=== PATIENT | female | born 1965 | race African-American/Black ===

== ENCOUNTER 2021-10-10 08:57 | Emergency (ER) | payer OTHER ==
[~2021-10-10] VITALS: Ht 157.5 cm; Wt 91.0 kg
[2021-10-10] MEDS ORDERED: HYDR12.54 PO (09:19)
[2021-10-10] MEDS ORDERED: THROAT LOZENGES-BENZOCAINE/MENTH/CETYLPYRD CL LOZENGES MM PRN (09:45)
[2021-10-10] MEDS ORDERED: GUAIFENESIN 200MG/10ML SUGAR FREE UDC PO ONE (09:45)
[2021-10-10] MEDS ORDERED: IBUPROFEN 400MG TABLET PO ONE (09:45)
[2021-10-10] MEDS ORDERED: GUAI237L83 MT (10:42)
[2021-10-10] MEDS ORDERED: IBUP-2028 MT (10:42)
[2021-10-10 11:05] VITALS: BP 138/72
== END 2021-10-10 11:07 | disposition home or self-care (01) ==
LOC: ER 08:57
DX: J06.9 Acute upper respiratory infection, unspecified (principal); M19.90 Unspecified osteoarthritis, unspecified site; I10 Essential (primary) hypertension; Z90.49 Acquired absence of other specified parts of digestive tract; Z98.51 Tubal ligation status; Z98.890 Other specified postprocedural states
CPT/HCPCS: 71045; 73610; 99284

== ENCOUNTER 2022-07-09 09:54 | Emergency (ER) | payer OTHER ==
[~2022-07-09] VITALS: Ht 157.5 cm; Wt 96.0 kg
[~2022-07-09 09:54] MED LIST: GUAI237L83 MT; HYDR12.54 PO; IBUP-2028 MT
[2022-07-09 10:06] VITALS: BP 159/64
[2022-07-09] MEDS ORDERED: ACETAMINOPHEN 325MG TABLET PO ONE (11:30)
[2022-07-09] MEDS ORDERED: ACET-2708 MT (13:03)
== END 2022-07-09 13:19 | disposition home or self-care (01) ==
LOC: ER 09:54
DX: S93.491A Sprain of other ligament of right ankle, initial encounter (principal); S90.01XA Contusion of right ankle, initial encounter; I10 Essential (primary) hypertension; W01.0XXA Fall on same level from slipping, tripping and stumbling without subsequent striking against object, initial encounter; Y93.9 Activity, unspecified; Y92.9 Unspecified place or not applicable; Z90.49 Acquired absence of other specified parts of digestive tract; Z98.51 Tubal ligation status; Z98.890 Other specified postprocedural states
CPT/HCPCS: 73610; 73630; 99284

== ENCOUNTER 2022-12-23 14:10 | Inpatient (IN) | payer OTHER ==
[~2022-12-23] VITALS: Ht 160 cm; Wt 107.5 kg
[~2022-12-23 14:10] MED LIST changes: +ACET-2708 MT
[2022-12-23] MEDS ORDERED: PRILOSEC (14:18)
[2022-12-23] MEDS ORDERED: ALBUTEROL (14:18)
[2022-12-23] MEDS ORDERED: LISINOPRIL (14:18)
[2022-12-23] MEDS ORDERED: BANOPHEN (14:18)
[2022-12-23] MEDS ORDERED: AMLODIPINE (14:18)
[2022-12-23] MEDS ORDERED: VITAMIN D (14:18)
[2022-12-23 15:21] LABS: BASOPHILS % 0.4 % (0.0-2.0); EOSINOPHILS % 1.8 % (0.0-5.0); HEMATOCRIT. 40.1 % (36.0-48.0); HEMOGLOBIN. 13.6 g/dL (12.0-16.0); LYMPHOCYTES % 31.7 % (20.0-50.0); MEAN CORPUSCULAR HEMOGLOBIN 32.8 pg (28.0-32.0); MEAN CORPUSCULAR VOLUME 96.4 fL (81.0-99.0); MEAN PLATELET VOLUME 7.7 fl (7.4-10.4); MONOCYTES % 6.4 % (2.0-8.0); NEUTROPHILS % 59.7 % (40.0-76.0); PLATELET 325 x1000/uL (130-400); RED BLOOD CELL COUNT 4.16 mill/uL (4.2-5.4)
[2022-12-23 15:31] LABS: CHLORIDE 90 mEq/L (98-107)
[2022-12-23 16:07] LABS: PARTIAL THROMBOPLASTIN TIME 25.9 sec (23.4-31.0); PROTHROMBIN TIME 11.1 sec (9.6-11.0)
[2022-12-23] MEDS ORDERED: POTASSIUM CHLORIDE 20MEQ TABLET SR PO ONE (17:00)
[2022-12-23] MEDS ORDERED: MAGNESIUM 2 G PREMIX 50 ML IV ONE (17:00)
[2022-12-23] MEDS ORDERED: KCL 20MEQ/100ML PREMIX 100 ML IV ONE (17:00)
[2022-12-23 17:33] LABS: BG BASE EXCESS 24.3 mmol/L (-2.0-2.0); BG DEOXYHEMOGLOBIN 9.5 % (0.0-5.0); BG METHEMOGLOBIN 0.4 % (0.0-1.5); BG OXYGEN SATURATION 90.4 % (92.0-98.5); BG OXYHEMOGLOBIN 89.1 % (94.0-97.0); BG PCO2 53.3 mmHg (35.0-45.0); BG PO2 54.3 mmHg (75.0-100.0); BG SAMPLE SITE RIGHT BRACHIAL; BG VENT MODE ROOM AIR
[2022-12-23] MEDS ORDERED: POTASSIUM CHLORIDE 20MEQ/PACKET PO NR (17:45)
[2022-12-23] MEDS ORDERED: ASPIRIN 325MG EC TABLET PO ONE (19:15)
[2022-12-23 20:52] LABS: CLARITY URINE CLEAR (CLEAR); COLOR URINE YELLOW (YELLOW); KETONES URINE TRACE (NEGATIVE); LEUKOCYTE ESTERASE URINE TRACE (NEGATIVE); NITRITE URINE POSITIVE (NEGATIVE); OCCULT BLOOD URINE TRACE (NEGATIVE); PH URINE 6.5 (4.5-8.0); PROTEIN URINE TRACE (NEGATIVE); SPECIFIC GRAVITY URINE 1.013 (1.005-1.030)
[2022-12-23] MEDS ORDERED: DIPH25TA23 PO (21:50)
[2022-12-23] MEDS ORDERED: AMLO5TAB4 PO (21:50)
[2022-12-23] MEDS ORDERED: OMEP20CA14 PO (21:50)
[2022-12-23] MEDS ORDERED: ERGO1250 PO (21:50)
[2022-12-23] MEDS ORDERED: HYDR25TA PO (21:50)
[2022-12-23] MEDS ORDERED: ALBU6.7H3 INH (22:12)
[2022-12-23] MEDS ORDERED: IPRATROPIUM/ALBUTEROL 0.5-3(2.5)MG/3ML NEB HHN PRN (22:15)
[2022-12-23] MEDS ORDERED: DIPHENHYDRAMINE 25MG CAPSULE PO PRN (22:15)
[2022-12-23 22:40] VITALS: BP 122/74; PULSE 75; RESP 18; TEMP 98.7
[2022-12-23] MEDS: ATORVASTATIN CALCIUM 40MG TABLET PO SCH (23:39)
[2022-12-24] VITALS (13 sets, daily range): BP systolic 100–159; BP diastolic 52–82; PULSE 64–80; RESP 10–36; TEMP 97.5–98.2
[2022-12-24] MEDS: KCL 20MEQ/100ML PREMIX 100 ML IV SCH ×6 (01:06→16:02)
[2022-12-24] MEDS ORDERED: ACETAMINOPHEN 325MG TABLET PO PRN (06:30)
[2022-12-24] MEDS ORDERED: ENOXAPARIN 40MG/0.4ML SYR SUBCUT SCH (09:00)
[2022-12-24] MEDS: OMEPRAZOLE 20MG CAPSULE EXTENDED RELEASE PO SCH (09:07)
[2022-12-24] MEDS: ASPIRIN 81MG TABLET PO SCH (09:07)
[2022-12-24 09:18] LABS: BASOPHILS % 0.3 % (0.0-2.0); EOSINOPHILS % 2.6 % (0.0-5.0); HEMATOCRIT. 37.9 % (36.0-48.0); LYMPHOCYTES % 24.8 % (20.0-50.0); MEAN CORPUSCULAR HEMOGLOBIN 33.2 pg (28.0-32.0); MEAN CORPUSCULAR VOLUME 96.6 fL (81.0-99.0); MONOCYTES % 7.2 % (2.0-8.0); NEUTROPHILS % 65.1 % (40.0-76.0); PLATELET 308 x1000/uL (130-400); RED BLOOD CELL COUNT 3.92 mill/uL (4.2-5.4); RED CELL DISTRIBUTION WIDTH 14.3 % (11.6-14.6)
[2022-12-24 09:38] LABS: CHLORIDE 93 mEq/L (98-107)
[2022-12-24 09:44] LABS: HDL CHOLESTEROL 55 mg/dL (40-59); LDL CHOLESTEROL 34 mg/dL (5-100)
[2022-12-24] MEDS ORDERED: CEFTRIAXONE 1GM PREMIX 50 ML IV SCH (10:30)
[2022-12-24] MEDS: POTASSIUM CHLORIDE 20MEQ TABLET SR PO SCH ×3 (10:36→22:43)
[2022-12-24 10:46] LABS: PHOSPHORUS 2.7 mg/dL (2.5-4.9)
[2022-12-24] MEDS: CEFTRIAXONE 1,000 MG in DEXTROSE 5% WATER 50 ML IV SCH (11:55)
[2022-12-24] MEDS: THIAMINE HCL 100MG TABLET PO SCH (16:30)
[2022-12-24 18:00] LABS: *AMPHETAMINES SCREEN URINE NEGATIVE (NEGATIVE); *BARBITURATES SCREEN URINE NEGATIVE (NEGATIVE); *BENZODIAZEPINES SCREEN URINE NEGATIVE (NEGATIVE); *COCAINE SCREEN URINE PRESUMTIVE POSITIVE (NEGATIVE); CANNABINOID URINE SCREEN NEGATIVE (NEGATIVE); METHADONE URINE SCREEN NEGATIVE (NEGATIVE); OPIATES URINE SCREEN NEGATIVE (NEGATIVE); PHENCYCLIDINE URINE SCREEN NEGATIVE (NEGATIVE)
[2022-12-24] MEDS ORDERED: POTASSIUM CHLORIDE INJ 60 MEQ in DEXT 5% WATER 250 ML IV ONE (21:15)
[2022-12-24] MEDS: ATORVASTATIN CALCIUM 40MG TABLET PO SCH (21:56)
[2022-12-24] MEDS: ENOXAPARIN 30MG/0.3ML SYR SUBCUT SCH (21:56)
[2022-12-24] MEDS ORDERED: KCL 20MEQ/100ML PREMIX 100 ML IV SCH (22:00)
[2022-12-25] VITALS (12 sets, daily range): BP systolic 121–175; BP diastolic 34–94; PULSE 64–79; RESP 14–30; TEMP 98.2–98.7
[2022-12-25] MEDS: POTASSIUM CHLORIDE 20MEQ TABLET SR PO SCH ×4 (02:22→10:44)
[2022-12-25 08:08] LABS: BASOPHILS % 0.3 % (0.0-2.0); EOSINOPHILS % 2.9 % (0.0-5.0); HEMATOCRIT. 35.7 % (36.0-48.0); HEMOGLOBIN. 12.3 g/dL (12.0-16.0); LYMPHOCYTES % 30.7 % (20.0-50.0); MEAN CORPUSCULAR HEMOGLOBIN 33.2 pg (28.0-32.0); MEAN CORPUSCULAR VOLUME 96.6 fL (81.0-99.0); MONOCYTES % 7.3 % (2.0-8.0); NEUTROPHILS % 58.8 % (40.0-76.0); PLATELET 286 x1000/uL (130-400); RED BLOOD CELL COUNT 3.69 mill/uL (4.2-5.4)
[2022-12-25 08:34] LABS: CHLORIDE 95 mEq/L (98-107)
[2022-12-25] MEDS: ENOXAPARIN 30MG/0.3ML SYR SUBCUT SCH ×2 (08:43→22:51)
[2022-12-25] MEDS: ASPIRIN 81MG TABLET PO SCH (08:43)
[2022-12-25] MEDS: OMEPRAZOLE 20MG CAPSULE EXTENDED RELEASE PO SCH (08:44)
[2022-12-25] MEDS: THIAMINE HCL 100MG TABLET PO SCH (08:44)
[2022-12-25 10:23] LABS: HEPATITIS B SURFACE ANTIGEN NEGATIVE
[2022-12-25] MEDS ORDERED: POTASSIUM CHLORIDE INJ 40 MEQ in DEXT 5% WATER 250 ML IV ONE (12:00)
[2022-12-25] MEDS: CEFTRIAXONE 1,000 MG in DEXTROSE 5% WATER 50 ML IV SCH (12:31)
[2022-12-25 13:02] LABS: FOLIC ACID (FOLATE) SERUM 4.1 ng/mL (>5.38)
[2022-12-25] MEDS: POTASSIUM CHLORIDE INJ 40 MEQ in SODIUM CHLORIDE 0.45% 1,000 ML IV SCH (13:58)
[2022-12-25] MEDS ORDERED: POTASSIUM CHLORIDE 20MEQ TABLET SR PO NR (14:00)
[2022-12-25] MEDS: MAGNESIUM GLUCONATE 500MG TABLET PO SCH (15:33)
[2022-12-25] MEDS: FOLIC ACID 1MG TABLET PO SCH (18:44)
[2022-12-25] MEDS: ATORVASTATIN CALCIUM 40MG TABLET PO SCH (22:48)
[2022-12-26] VITALS (10 sets, daily range): BP systolic 118–172; BP diastolic 72–115; PULSE 67–83; RESP 16–22; TEMP 96.9–98.4; O2SAT 99
[2022-12-26] MEDS: POTASSIUM CHLORIDE INJ 40 MEQ in SODIUM CHLORIDE 0.45% 1,000 ML IV SCH ×2 (04:00→16:42)
[2022-12-26 07:06] LABS: BASOPHILS % 0.2 % (0.0-2.0); EOSINOPHILS % 3.6 % (0.0-5.0); HEMATOCRIT. 34.2 % (36.0-48.0); HEMOGLOBIN. 11.5 g/dL (12.0-16.0); LYMPHOCYTES % 32.5 % (20.0-50.0); MEAN CORPUSCULAR HEMOGLOBIN 32.6 pg (28.0-32.0); MEAN CORPUSCULAR VOLUME 96.9 fL (81.0-99.0); MONOCYTES % 6.5 % (2.0-8.0); NEUTROPHILS % 57.2 % (40.0-76.0); PLATELET 271 x1000/uL (130-400); RED BLOOD CELL COUNT 3.53 mill/uL (4.2-5.4); RED CELL DISTRIBUTION WIDTH 14.6 % (11.6-14.6)
[2022-12-26 07:18] LABS: CHLORIDE 100 mEq/L (98-107)
[2022-12-26] MEDS ORDERED: LEVO-65 MT (08:14)
[2022-12-26] MEDS ORDERED: FOLI-43 PO (08:14)
[2022-12-26] MEDS: THIAMINE HCL 100MG TABLET PO SCH (08:16)
[2022-12-26] MEDS: OMEPRAZOLE 20MG CAPSULE EXTENDED RELEASE PO SCH (08:16)
[2022-12-26] MEDS: ASPIRIN 81MG TABLET PO SCH (08:16)
[2022-12-26] MEDS: FOLIC ACID 1MG TABLET PO SCH (08:16)
[2022-12-26] MEDS: MAGNESIUM GLUCONATE 500MG TABLET PO SCH ×2 (08:17→17:28)
[2022-12-26] MEDS: ENOXAPARIN 30MG/0.3ML SYR SUBCUT SCH (08:17)
[2022-12-26] MEDS ORDERED: POTA-204 MT (08:57)
[2022-12-26] MEDS ORDERED: AMLODIPINE 10MG TABLET PO SCH (09:00)
[2022-12-26] MEDS: POTASSIUM CHLORIDE 20MEQ TABLET SR PO SCH ×2 (09:14→17:27)
[2022-12-26] MEDS ORDERED: POTASSIUM CHLORIDE 20MEQ TABLET SR PO NR (10:00)
[2022-12-26] MEDS: CEFTRIAXONE 1,000 MG in DEXTROSE 5% WATER 50 ML IV SCH (11:48)
[2022-12-26] MEDS ORDERED: CLONIDINE 0.1MG TABLET PO PRN (17:30)
[2022-12-27] MEDS ORDERED: FAMOTIDINE 20MG TABLET PO SCH (09:00)
[2022-12-30 17:06] LABS: OVA & PARASITE EXAM Final report (.)
[2023-01-02 04:08] LABS: OVA & PARASITE EXAM Final report (.)
== END 2022-12-26 18:40 | disposition home or self-care (01) | DRG 425 ==
LOC: ER 14:10 → 5EST 19:09 → EDBEDREQSVC 19:11 → EDBEDREQTM 19:11 → EDBEDREQ 19:11 → ENRESERV 20:21
PROVIDERS: ADMIT Internal Medicine; ATTEND Internal Medicine
DX: E87.6 Hypokalemia (principal); E43 Unspecified severe protein-calorie malnutrition; K76.0 Fatty (change of) liver, not elsewhere classified; E83.42 Hypomagnesemia; E66.9 Obesity, unspecified; I10 Essential (primary) hypertension; N39.0 Urinary tract infection, site not specified; J45.909 Unspecified asthma, uncomplicated; F10.20 Alcohol dependence, uncomplicated; R74.01 Elevation of levels of liver transaminase levels; K21.9 Gastro-esophageal reflux disease without esophagitis; Z86.73 Personal history of transient ischemic attack (TIA), and cerebral infarction without residual deficits; Z90.49 Acquired absence of other specified parts of digestive tract; Z63.4 Disappearance and death of family member; Z68.41 Body mass index [BMI] 40.0-44.9, adult
CPT/HCPCS: 36415; 36600; 71045; 74176; 76700; 80048; 80053; 80061; 80076; 80305; 81003; 82088; 82375; 82436; 82570; 82746; 82805; 83036; 83735; 83880; 84100; 84132; 84133; 84300; 84484; 85025; 86705; 86709; 86803; 87015; 87045; 87177; 87209; 87340; 87427; 87449; 87493; 89055; 93005; 99291; J0696; J1650; J3475; J3480; J7060; Q0163